=== PATIENT | female | born 1945 ===

== ENCOUNTER 2018-07-13 14:15 | Inpatient (IN) | payer OTHER, SELFPAY ==
[2018-07-13 14:15] VITALS: BP 112/57; PULSE 82; RESP 24; TEMP 36.4; O2SAT 98
--- NOTE | 2018-07-13 14:29 | ED_ITS ---
HPI - Altered Mental Status General Chief Complaint: Altered Mental Status Stated Complaint: possible OD Time Seen by Provider: 07/13/18 14:26 Source: EMS and old records reviewed Mode of arrival: EMS Limitations: altered mental status History of Present Illness HPI narrative: This is a 72-year-old female who comes to the emergency department with altered mental status. EMS was contacted by a friend who was at scene. They did not get any significant past medical history from the friend. Patient was combative and altered. She had is for fentanyl patches on which they removed, 1 of the medics gave Narcan 0.6 mg. Patient continued to be combative. Patient did not improve during transport and received lorazepam followed by ketamine. Related Data Home Medications Medication Instructions Recorded Confirmed amitriptyline 150 mg PO BEDTIME 07/13/18 07/13/18 fentanyl 1 patch TRANSDERMAL Q72H 07/13/18 07/13/18 hydrocodone-acetaminophen [[place]] 1 - 2 tab PO Q4-6H PRN MDD 10 07/13/18 07/13/18 levothyroxine 75 mcg PO DAILY 07/13/18 07/13/18 lisinopril 40 mg PO DAILY 07/13/18 07/13/18 metoprolol tartrate 50 mg PO DAILY 07/13/18 07/13/18 sertraline 50 mg PO DAILY 07/13/18 07/13/18 Allergies Allergy/AdvReac Type Severity Reaction Status Date / Time No Allergy Information Allergy Verified 07/13/18 15:29 Available Review of Systems Review of Systems ROS Unobtainable: Unobtainable due to mental status/LOC Exam Narrative Exam Narrative: GEN: well nourished, female, alert, patient appears to be in moderate distress. Patient does not follow any commands. She has plenty of independent movement and is sort of some worrying all over the bed. She does not appear to be in pain patient will make grunts or loud noises occasionally. She does not answer questions for me while in the room, she has made a couple of very short statements to nursing staff. HEENT: Atraumatic, pupils are equal round reactive to light, extraocular movements are intact, nares are clear, TMs are clear with no fluid, there is no conjunctival pallor. Throat is clear without any exudates, erythema, tonsillar enlargement or uvular deviation, no facial droop. HEART: Regular rate and rhythm without murmur, clicks, rubs. Pulses are equal in upper and lower extremities LUNGS:Lungs clear to auscultation, no wheezes, rales, crackles, chest moves symmetrically, no tachypnea or accessory muscle use. ABD:bowel sounds normal, soft, non-tender, no guarding, rebound, rigidity, no masses noted, no hepatosplenomegaly :No CVA tenderness MSCL: Non-tender, no muscle atrophy, muscles strength 5/5 upper and lower extremities, full range of motion, NEURO:CN 2-12 intact, sensation normal Initial Vital Signs Initial Vital Signs: Vital Signs Temperature 97.6 F 07/13/18 14:15 Pulse Rate 82 07/13/18 14:15 Respiratory Rate 24 07/13/18 14:15 Blood Pressure 112/57 L 07/13/18 14:15 Pulse Oximetry 98 07/13/18 14:15 Course Orders Ordered: ED Orders 07/13/18 14:27 CT head/brain wo con Stat EKG-12 Lead Stat 07/13/18 14:30 XR chest 1V Stat Basic Metabolic Panel Stat Complete Blood Count AUTO DIFF Stat Partial Thromboplastin Time Stat Prolactin Stat Prothrombin Time INR Stat Troponin I Stat Urine Drug Screen, Rapid Stat 07/13/18 14:42 Ethanol (ETOH) Stat 07/13/18 15:30 Urinalysis and Microscopic Stat 07/13/18 18:27 Education, smoking cessation ONGOING 07/13/18 18:30 MRSA PCR Urgent 07/14/18 05:00 Complete Blood Count AUTO DIFF Routine Acetaminophen (Tylenol) 650 mg PO Q6HR PRN PRN Reason: As Needed for Fever/Mild Pain Sodium Chloride (Normal Saline 0.9%) 1,000 mls @ 100 mls/hr IV CONT PAULA Magnesium Hydroxide (Milk Of Magnesia) 30 ml PO DAILY PRN PRN Reason: Constipation Discontinued Medications Sodium Chloride (Normal Saline 0.9%) 1,000 mls @ 150 mls/hr IV CONT PAULA Last Infusion: 07/13/18 16:35 Dose: 150 mls/hr Admin: 07/13/18 15:36 Dose: 150 mls/hr Ketamine HCl (Ketalar) 150 mg IV NOW ONE Stop: 07/13/18 14:46 Last Admin: 07/13/18 14:50 Dose: 150 mg Vital Signs - 8 hr 07/13/18 14:15 07/13/18 15:08 07/13/18 15:52 Temperature 97.6 F Pulse Rate 82 78 89 Respiratory Rate 24 26 H 26 H Blood Pressure 112/57 L Blood Pressure [Right Arm] 158/91 H 145/64 H Pulse Oximetry 98 96 97 07/13/18 16:12 Temperature Pulse Rate 88 Respiratory Rate 26 H Blood Pressure Blood Pressure [Right Arm] 145/86 H Pulse Oximetry 93 MDM - Altered Mental Status Lab Data Attestation: I reviewed the patient's lab results. Result diagrams: 07/13/18 14:30 07/13/18 14:30 Lab Results 07/13/18 07/13/18 07/13/18 Range/Units 14:30 14:30 14:30 WBC 11.1 H (4.5-11.0) X10^3/uL RBC 4.21 (4.0-5.2) X10^6/uL Hgb 13.0 (12.0-16.0) g/dL Hct 37.8 (36-46) % MCV 89.9 (80-100) fL MCH 31.0 (26-34) PG MCHC 34.4 (30-36) % RDW 13.1 (11.6-14.8) % Plt Count 377 (150-400) X10^3/uL Neut % (Auto) 85.7 H (50-75) % Lymph % (Auto) 9.1 L (25-40) % [place] % (Auto) 3.9 (3-14) % Eos % (Auto) 0.8 L (2-4) % Baso % (Auto) 0.5 (0-2) % Neut # (Auto) 9500 H (5920-6650) /uL Lymph # (Auto) 1000 L (6185-1203) /uL [place] # (Auto) 400 (0-900) /uL Eos # (Auto) 100 (0-450) /uL Baso # (Auto) 100 (0-100) /uL PT 10.7 (10.1-12.7) SECONDS INR 0.9 (0.9-1.3) APTT 30 (26.4-36.2) SECONDS Sodium (137-145) mmol/L Potassium (3.4-5.1) mmol/L Chloride (98-107) mmol/L Carbon Dioxide (22-32) mmol/L BUN (7-17) mg/dL Creatinine (0.52-1.04) mg/dL Estimated GFR (>60) mL/min BUN/Creatinine Ratio (6-22) Glucose (80-110) mg/dL Calcium (8.4-10.2) mg/dL Troponin I < 0.012 (0.01-0.034) ng/mL Prolactin 9.5 (3.0-18.6) ng/mL Urine Color Urine Appearance Urine pH (4.5-8.0) Ur Specific [place] (1.000-1.035) Urine Protein (Negative) Urine Glucose (UA) (Negative) g/dL Urine Ketones (NEGATIVE) Urine Occult Blood (Negative) Urine Nitrate (Negative) Urine Bilirubin (NEGATIVE) Urine Urobilinogen (0.2) E.U./dL Ur Leukocyte Esterase (NEGATIVE) Urine RBC (0-5/HPF) Urine WBC (0-5/HPF) Ur Squamous Epith Cells Amorphous Sediment Urine Bacteria (None) Ur Culture Indicated? Urine Opiates Screen (Negative) Ur Oxycodone Screen (Negative) Urine Methadone Screen (Negative) Ur Barbiturates Screen (Negative) U Tricyclic Antidepress (Negative) Ur Phencyclidine Scrn (Negative) Ur Amphetamines Screen (Negative) U Methamphetamines Scrn (Negative) Ur MDMA Scrn (Ecstasy) (Negative) U Benzodiazepines Scrn (Negative) Urine Cocaine Screen (Negative) U Marijuana (THC) Screen (Negative) Ethyl Alcohol mg/dL 07/13/18 07/13/18 07/13/18 Range/Units 14:30 14:30 14:42 WBC (4.5-11.0) X10^3/uL RBC (4.0-5.2) X10^6/uL Hgb (12.0-16.0) g/dL Hct (36-46) % MCV (80-100) fL MCH (26-34) PG MCHC (30-36) % RDW (11.6-14.8) % Plt Count (150-400) X10^3/uL Neut % (Auto) (50-75) % Lymph % (Auto) (25-40) % [place] % (Auto) (3-14) % Eos % (Auto) (2-4) % Baso % (Auto) (0-2) % Neut # (Auto) (4513-3870) /uL Lymph # (Auto) (0019-7135) /uL [place] # (Auto) (0-900) /uL Eos # (Auto) (0-450) /uL Baso # (Auto) (0-100) /uL PT (10.1-12.7) SECONDS INR (0.9-1.3) APTT (26.4-36.2) SECONDS Sodium 134 L (137-145) mmol/L Potassium 4.5 (3.4-5.1) mmol/L Chloride 99 (98-107) mmol/L Carbon Dioxide 27 (22-32) mmol/L BUN 17 (7-17) mg/dL Creatinine 0.80 (0.52-1.04) mg/dL Estimated GFR > 60.0 (>60) mL/min BUN/Creatinine Ratio 21.3 (6-22) Glucose 92 (80-110) mg/dL Calcium 10.2 (8.4-10.2) mg/dL Troponin I (0.01-0.034) ng/mL Prolactin (3.0-18.6) ng/mL Urine Color Urine Appearance Urine pH (4.5-8.0) Ur Specific [place] (1.000-1.035) Urine Protein (Negative) Urine Glucose (UA) (Negative) g/dL Urine Ketones (NEGATIVE) Urine Occult Blood (Negative) Urine Nitrate (Negative) Urine Bilirubin (NEGATIVE) Urine Urobilinogen (0.2) E.U./dL Ur Leukocyte Esterase (NEGATIVE) Urine RBC (0-5/HPF) Urine WBC (0-5/HPF) Ur Squamous Epith Cells Amorphous Sediment Urine Bacteria (None) Ur Culture Indicated? Urine Opiates Screen Positive H (Negative) Ur Oxycodone Screen Negative (Negative) Urine Methadone Screen Negative (Negative) Ur Barbiturates Screen Negative (Negative) U Tricyclic Antidepress Positive H (Negative) Ur Phencyclidine Scrn Negative (Negative) Ur Amphetamines Screen Negative (Negative) U Methamphetamines Scrn Negative (Negative) Ur MDMA Scrn (Ecstasy) Negative (Negative) U Benzodiazepines Scrn Negative (Negative) Urine Cocaine Screen Negative (Negative) U Marijuana (THC) Screen Negative (Negative) Ethyl Alcohol < 10 mg/dL 07/13/18 Range/Units 15:30 WBC (4.5-11.0) X10^3/uL RBC (4.0-5.2) X10^6/uL Hgb (12.0-16.0) g/dL Hct (36-46) % MCV (80-100) fL MCH (26-34) PG MCHC (30-36) % RDW (11.6-14.8) % Plt Count (150-400) X10^3/uL Neut % (Auto) (50-75) % Lymph % (Auto) (25-40) % [place] % (Auto) (3-14) % Eos % (Auto) (2-4) % Baso % (Auto) (0-2) % Neut # (Auto) (1720-9603) /uL Lymph # (Auto) (1973-2596) /uL [place] # (Auto) (0-900) /uL Eos # (Auto) (0-450) /uL Baso # (Auto) (0-100) /uL PT (10.1-12.7) SECONDS INR (0.9-1.3) APTT (26.4-36.2) SECONDS Sodium (137-145) mmol/L Potassium (3.4-5.1) mmol/L Chloride (98-107) mmol/L Carbon Dioxide (22-32) mmol/L BUN (7-17) mg/dL Creatinine (0.52-1.04) mg/dL Estimated GFR (>60) mL/min BUN/Creatinine Ratio (6-22) Glucose (80-110) mg/dL Calcium (8.4-10.2) mg/dL Troponin I (0.01-0.034) ng/mL Prolactin (3.0-18.6) ng/mL Urine Color Yellow Urine Appearance Clear Urine pH 7.5 (4.5-8.0) Ur Specific [place] 1.020 (1.000-1.035) Urine Protein Negative (Negative) Urine Glucose (UA) Negative (Negative) g/dL Urine Ketones Negative (NEGATIVE) Urine Occult Blood Negative (Negative) Urine Nitrate Negative (Negative) Urine Bilirubin Negative (NEGATIVE) Urine Urobilinogen 0.2 (0.2) E.U./dL Ur Leukocyte Esterase Negative (NEGATIVE) Urine RBC None seen (0-5/HPF) Urine WBC None seen (0-5/HPF) Ur Squamous Epith Cells 5-10 /hpf H Amorphous Sediment 2+ Urine Bacteria None seen (None) Ur Culture Indicated? Cult not indicated Urine Opiates Screen (Negative) Ur Oxycodone Screen (Negative) Urine Methadone Screen (Negative) Ur Barbiturates Screen (Negative) U Tricyclic Antidepress (Negative) Ur Phencyclidine Scrn (Negative) Ur Amphetamines Screen (Negative) U Methamphetamines Scrn (Negative) Ur MDMA Scrn (Ecstasy) (Negative) U Benzodiazepines Scrn (Negative) Urine Cocaine Screen (Negative) U Marijuana (THC) Screen (Negative) Ethyl Alcohol mg/dL Point of Care Testing Glucose POC [address] scan - head: Radiologist's impression: [address] [address] [address] Scan Report Signed Patient: Christel Lemus JMR#: [id number] : 6Acct:[id number] Age/Sex: 72 / FDate of Service: 07/13/18 Loc: ED Accession Number: [id number] Procedure: CT head/brain wo con Ordering Provider: Vicky Garcia D.O. PROCEDURE: CT HEAD/BRAIN WO CON INDICATIONS: altered mental status TECHNIQUE: Noncontrast 4.5 mm thick angled axial sections acquired from the foramen magnum to the vertex, with coronal and sagittal reformats. For radiation dose reduction, the following was used: automated exposure control, adjustment of mA and/or kV according to patient size. COMPARISON: None. FINDINGS: Image quality: Excellent. CSF spaces: Basal cisterns are patent. No extra-axial fluid collections. The ventricles are symmetric in size and shape. Brain: No intracranial bleeds or masses. There is cerebral volume loss for age, with resultant ventricular and sulcal prominence. There are periventricular and deep white matter chronic small vessel ischemic changes. There is intracranial internal carotid artery atherosclerosis. Skull and face: Calvarium and visualized facial bones appear intact, without suspicious lesions. Sinuses: Visualized sinuses and mastoids are clear. IMPRESSION: No acute intracranial process Dictated by: Marco Antonio Shaw M.D. on 07/13/2018 at 15:14 Approved by: Marco Antonio Shaw M.D. on 07/13/2018 at 15:17 Chest x-ray: Radiologist's impression: [address] [address] XRay Report Signed Patient: Christel Lemus JMR#: [id number] : 6Acct:[id number] Age/Sex: 72 / FDate of Service: 07/13/18 Loc: ED Accession Number: [id number] Procedure: XR chest 1V Ordering Provider: Vicky Garcia D.O. PROCEDURE: XR CHEST 1V INDICATIONS: altered mental status TECHNIQUE: One view of the chest was acquired. COMPARISON: None. FINDINGS: Surgical changes and devices: None. Lungs and pleura: Bilateral reticular-nodular infiltrates are present. No pleural effusions or pneumothorax. Mediastinum: Mediastinal contours appear normal. Heart size is normal. Bones and chest wall: No suspicious bony lesions. Overlying soft tissues appear unremarkable. IMPRESSION: Bilateral reticular-nodular infiltrates suspicious for pneumonia including atypical infections. Recommend clinical correlation. Dictated by: Ester Briones M.D. on 07/13/2018 at 15:20 Approved by: Ester Briones M.D. on 07/13/2018 at 15:46 ECG Data Attestation: I personally reviewed and interpreted this ECG as follows: Interpretation: Sinus rhythm with sinus arrhythmia and first-degree AV block. A rate of 80, P are interval of 218, QRS of 116 and QTC of 410. Nonspecific ST c hange. Some of this may be motion artifact is patient is moving a lot on exam. [facility] Narrative Medical decision making narrative: Dr. Johnson accepts for admission. Discussed with patient's sister she has a history of alcohol abuse but she states that she suspects she has not been using any or illicit drugs. She does have concern for possibly using her prescription medications inappropriately but she does not have any specific evidence for this. She states that her sister does not have any similar symptoms that in the past that she is aware of. She has not seen her in the last day or 2 but states this is not normal for the patient. Patient's lab work does not show any major changes other than positive for opiates and tricyclics. Patient's chest x-ray shows some by lateral reticular nodule infiltrates suspicious for possible pneumonia. Patient's physical exam is not consistent with an alcohol withdrawal syndrome. And no other clear causes such as bleed on her head CT, alteration in liver enzymes, electrolyte abnormalities their the source of her altered mental status. Discharge Plan Departure Patient Disposition: Admitted As Inpatient Clinical Impression: Altered mental status Discharge Date/Time: 07/13/18 14:30 Interventions: ED Discharge Assessment Last Done: 07/13/18 16:33 Admit Date/Time: 07/13/18 16:14 Admit Provider: Trace Johnson
[2018-07-13 14:44] LABS: Add Manual Diff / Slide Review NO; Basophils Absolute Auto 100 /uL (0-100); Basophils Percent Auto 0.5 % (0-2); Eosinophils Absolute Auto 100 /uL (0-450); Eosinophils Percent Auto 0.8 % (2-4); Hematocrit 37.8 % (36-46); Lymphocytes Absolute Auto 1000 /uL (1100-4500); Lymphocytes Percent Auto 9.1 % (25-40); Mean Corpuscular HGB Conc 34.4 % (30-36); Mean Corpuscular Volume 89.9 fL (80-100); Monocytes Absolute Auto 400 /uL (0-900); Monocytes Percent Auto 3.9 % (3-14); Neutrophils Absolute Auto 9500 /uL (1500-7000); Neutrophils Percent Auto 85.7 % (50-75); Platelet Count 377 X10^3/uL (150-400); Red Blood Cell Count 4.21 X10^6/uL (4.0-5.2); Red Cell Distribution Width 13.1 % (11.6-14.8); White Blood Cell Count 11.1 X10^3/uL (4.5-11.0)
[2018-07-13] MEDS: KETAMINE 500 MG/5 ML INJ 150 MG IV (14:50)
[2018-07-13 14:51] LABS: INR 0.9 (0.9-1.3); Prothrombin Time 10.7 SECONDS (10.1-12.7)
[2018-07-13 14:54] LABS: PTT Partial Thromboplastin Tim 30 SECONDS (26.4-36.2)
[2018-07-13 14:56] LABS: BUN Creatinine Ratio 21.3 (6-22); Blood Urea Nitrogen 17 mg/dL (7-17); Calcium 10.2 mg/dL (8.4-10.2); Carbon Dioxide 27 mmol/L (22-32); Chloride 99 mmol/L (98-107); Estimated Glomerular Filt Rate > 60.0 mL/min (>60); Glucose 92 mg/dL (80-110); HEMOLYSIS 20 (0-50); Potassium 4.5 mmol/L (3.4-5.1); Sodium 134 mmol/L (137-145)
[2018-07-13 15:00] LABS: Ethanol (ETOH) < 10 mg/dL
[2018-07-13 15:08] VITALS: BP 158/91; PULSE 78; RESP 26; O2SAT 96
[2018-07-13 15:10] LABS: Troponin I < 0.012 ng/mL (0.01-0.034)
[2018-07-13 15:13] LABS: Prolactin 9.5 ng/mL (3.0-18.6)
[2018-07-13] MEDS: SODIUM CHLORIDE 0.9% 1,000 ML 150 ML IV (15:36)
[2018-07-13 15:40] LABS: Bacteria Urine None Seen; RBC Urine None Seen (0-5/HPF); WBC Urine None Seen (0-5/HPF)
[2018-07-13 15:42] LABS: Appearance Urine UA CLEAR; Bilirubin Urine UA NEGATIVE (NEGATIVE); Color Urine UA YELLOW; Glucose Urine UA NEGATIVE (Negative); Ketones Urine UA NEGATIVE (NEGATIVE); Leukocyte Esterase Urine UA NEGATIVE (NEGATIVE); Nitrite Urine UA NEGATIVE (Negative); Occult Blood Urine UA NEGATIVE (Negative); Protein Urine UA NEGATIVE (Negative); Urobilinogen Urine UA 0.2 E.U./dL (0.2); pH Urine UA 7.5 (4.5-8.0)
--- NOTE | 2018-07-13 15:46 | PC.NURSE ---
Patient continues grunting, flexing, grabbing at the air, hallucinating, making noises but no intelligble words. A&Ox0.
[2018-07-13 15:49] LABS: Urine Amphetamines Negative (Negative); Urine Barbiturates Negative (Negative); Urine Benzodiazepines Negative (Negative); Urine Cocaine Negative (Negative); Urine MDMA Negative (Negative); Urine Methadone Negative (Negative); Urine Methamphetamines Negative (Negative); Urine Morphine/Opi cutoff 2000 Positive (Negative); Urine Phencyclidine Negative (Negative); Urine Tetrahydrocannabinol Negative (Negative); Urine Tricyclic Antidepressant Positive (Negative)
[2018-07-13 15:50] LABS: Urine Oxycodone Negative (Negative)
[2018-07-13 15:52] VITALS: BP 145/64; PULSE 89; RESP 26; O2SAT 97
[2018-07-13 15:52] LABS: Amorphous Sediment Urine 2+; Culture Indicated Urine Cult Not Indicated; Squamous Epithelial Cell Urine 5-10 /HPF
--- NOTE | 2018-07-13 15:53 | PC.NURSE ---
Patient began laughing while I scanned her for medications. I asked her Is that funny? And she said yeah. Continues thrashing/flailing, limbs, intermittently flexing, grunting and grabbing aimlessly at the air. NOt answering questions except for the one stated above.
--- NOTE | 2018-07-13 16:11 | PC.NURSE ---
Patient continues thrashing and moaning loudly and hallucinating, however she is now occasionally answering questions. Answers to her name and occasionally makes eye contact. A&Ox1.
[2018-07-13 16:12] VITALS: BP 145/86; PULSE 88; RESP 26; O2SAT 93
--- NOTE | 2018-07-13 16:13 | PC.NURSE ---
This EDRN has remained at bedside since she arrived and will continue to do so until she is transferred due to possibility of her falling out of bad or hurting herself.
[2018-07-13 17:28] VITALS: BMI 26.6
--- NOTE | 2018-07-13 18:06 | PC.NURSE ---
1630- Patient brought over to room 102 via stretcher from Emergency. Patient is agitated and yelling. Patient assisted to the bed using a slide board and assist of four staff. Patient is not able to follow instructions. Patient is combative and impulsive. Will monitor.
[2018-07-13 18:27] VITALS: BP 128/56; PULSE 74; RESP 28; TEMP 37; O2SAT 97
[2018-07-13] MEDS: SODIUM CHLORIDE 0.9% 1,000 ML 100 ML IV (18:30)
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
[2018-07-13 20:23] VITALS: BMI 23.1
[2018-07-13 20:24] VITALS: BMI 23.1
[2018-07-13 20:59] VITALS: BP 167/83; PULSE 68; RESP 20; TEMP 37.1; O2SAT 97
[2018-07-14] VITALS (10 sets, daily range): BP systolic 130–184; BP diastolic 65–81; PULSE 60–73; RESP 16–20; TEMP 36.1–37.2; O2SAT 95–99
[2018-07-14 04:58] LABS: Add Manual Diff / Slide Review NO; Basophils Absolute Auto 100 /uL (0-100); Basophils Percent Auto 0.7 % (0-2); Eosinophils Absolute Auto 0 /uL (0-450); Eosinophils Percent Auto 0.5 % (2-4); Hematocrit 33.2 % (36-46); Hemoglobin 11.3 g/dL (12.0-16.0); Lymphocytes Absolute Auto 1500 /uL (1100-4500); Lymphocytes Percent Auto 14.5 % (25-40); Mean Corpuscular HGB Conc 34.2 % (30-36); Mean Corpuscular Hemoglobin 30.5 PG (26-34); Mean Corpuscular Volume 89.4 fL (80-100); Monocytes Absolute Auto 800 /uL (0-900); Monocytes Percent Auto 7.2 % (3-14); Neutrophils Absolute Auto 8000 /uL (1500-7000); Neutrophils Percent Auto 77.1 % (50-75); Platelet Count 306 X10^3/uL (150-400); Red Blood Cell Count 3.71 X10^6/uL (4.0-5.2); Red Cell Distribution Width 13.2 % (11.6-14.8); White Blood Cell Count 10.4 X10^3/uL (4.5-11.0)
--- NOTE | 2018-07-14 07:44 | P.PN_ITS ---
Subjective Interval history: She presented to the ED confused restless and combative. She is on fentanyl patch 1 to 3 days but was found to have 4 of her fentanyl patches which medics removed. She is supposed to be on a single 25 mcg fentanyl patch. She received Narcan 0.6 mg and subsequently lorazepam followed by ketamine. She got 2nd dose of ketamine in the ED. Today once seen she was awake alert oriented x3. Her main complaint was that she was beginning to feel as though she was having opioid withdrawal because she did not have her fentanyl patch Exam Vital Signs (past 8 hours): - 07/14/18 00:02 07/14/18 01:28 07/14/18 05:00 Temperature 98.0 F 97.6 F Pulse Rate 65 67 Respiratory Rate 16 16 Blood Pressure 168/68 H 151/74 H Pulse Oximetry 95 98 98 07/14/18 07:29 Temperature 99.0 F Pulse Rate 67 Respiratory Rate 16 Blood Pressure 166/74 H Pulse Oximetry 99 Oxygen Delivery Method Room Air Oxygen Flow Rate 0 Narrative Exam Narrative: GENERAL: NAD laying in bed HEAD: Atraumatic. Normocephalic. EYES: Pupils dilated 5 mm but equal, round and reactive. Extraocular motions intact. No scleral icterus. No injection or drainage. OROPHARYNX: Noted dry flecks of blood on lips NECK: Trachea midline. No JVD or lymphadenopathy. CARDIOVASCULAR: Regular rate and rhythm without murmurs, gallops, or rubs. RESPIRATORY: Clear to auscultation bilaterally. GASTROINTESTINAL: Abdomen nondistended, soft, non-tender. No hepato- splenomegaly, or palpable masses. EXTREMITIES: No edema. NEUROLOGICAL: Grossly nonfocal PSYCHOLOGICAL: Awake alert oriented x3. Mood was normal SKIN: warm, dry, no rash Objective Labs Result Diagrams: 07/14/18 04:40 07/13/18 14:30 Labs: Laboratory Results - last 24 hr 07/13/18 07/13/18 07/13/18 14:30 14:30 14:30 WBC 11.1 H RBC 4.21 Hgb 13.0 Hct 37.8 MCV 89.9 MCH 31.0 MCHC 34.4 RDW 13.1 Plt Count 377 Neut % (Auto) 85.7 H Lymph % (Auto) 9.1 L [place] % (Auto) 3.9 Eos % (Auto) 0.8 L Baso % (Auto) 0.5 Neut # (Auto) 9500 H Lymph # (Auto) 1000 L [place] # (Auto) 400 Eos # (Auto) 100 Baso # (Auto) 100 PT 10.7 INR 0.9 APTT 30 Sodium Potassium Chloride Carbon Dioxide BUN Creatinine Estimated GFR BUN/Creatinine Ratio Glucose Calcium Troponin I < 0.012 Prolactin 9.5 Urine Color Urine Appearance Urine pH Ur Specific [place] Urine Protein Urine Glucose (UA) Urine Ketones Urine Occult Blood Urine Nitrate Urine Bilirubin Urine Urobilinogen Ur Leukocyte Esterase Urine RBC Urine WBC Ur Squamous Epith Cells Amorphous Sediment Urine Bacteria Ur Culture Indicated? Nasal Screen MRSA (PCR) Urine Opiates Screen Ur Oxycodone Screen Urine Methadone Screen Ur Barbiturates Screen U Tricyclic Antidepress Ur Phencyclidine Scrn Ur Amphetamines Screen U Methamphetamines Scrn Ur MDMA Scrn (Ecstasy) U Benzodiazepines Scrn Urine Cocaine Screen U Marijuana (THC) Screen Ethyl Alcohol 07/13/18 07/13/18 07/13/18 14:30 14:30 14:42 WBC RBC Hgb Hct MCV MCH MCHC RDW Plt Count Neut % (Auto) Lymph % (Auto) [place] % (Auto) Eos % (Auto) Baso % (Auto) Neut # (Auto) Lymph # (Auto) [place] # (Auto) Eos # (Auto) Baso # (Auto) PT INR APTT Sodium 134 L Potassium 4.5 Chloride 99 Carbon Dioxide 27 BUN 17 Creatinine 0.80 Estimated GFR > 60.0 BUN/Creatinine Ratio 21.3 Glucose 92 Calcium 10.2 Troponin I Prolactin Urine Color Urine Appearance Urine pH Ur Specific [place] Urine Protein Urine Glucose (UA) Urine Ketones Urine Occult Blood Urine Nitrate Urine Bilirubin Urine Urobilinogen Ur Leukocyte Esterase Urine RBC Urine WBC Ur Squamous Epith Cells Amorphous Sediment Urine Bacteria Ur Culture Indicated? Nasal Screen MRSA (PCR) Urine Opiates Screen Positive H Ur Oxycodone Screen Negative Urine Methadone Screen Negative Ur Barbiturates Screen Negative U Tricyclic Antidepress Positive H Ur Phencyclidine Scrn Negative Ur Amphetamines Screen Negative U Methamphetamines Scrn Negative Ur MDMA Scrn (Ecstasy) Negative U Benzodiazepines Scrn Negative Urine Cocaine Screen Negative U Marijuana (THC) Screen Negative Ethyl Alcohol < 10 07/13/18 07/13/18 07/14/18 15:30 18:30 04:40 WBC 10.4 RBC 3.71 L Hgb 11.3 L Hct 33.2 L MCV 89.4 MCH 30.5 MCHC 34.2 RDW 13.2 Plt Count 306 Neut % (Auto) 77.1 H Lymph % (Auto) 14.5 L [place] % (Auto) 7.2 Eos % (Auto) 0.5 L Baso % (Auto) 0.7 Neut # (Auto) 8000 H Lymph # (Auto) 1500 [place] # (Auto) 800 Eos # (Auto) 0 Baso # (Auto) 100 PT INR APTT Sodium Potassium Chloride Carbon Dioxide BUN Creatinine Estimated GFR BUN/Creatinine Ratio Glucose Calcium Troponin I Prolactin Urine Color Yellow Urine Appearance Clear Urine pH 7.5 Ur Specific [place] 1.020 Urine Protein Negative Urine Glucose (UA) Negative Urine Ketones Negative Urine Occult Blood Negative Urine Nitrate Negative Urine Bilirubin Negative Urine Urobilinogen 0.2 Ur Leukocyte Esterase Negative Urine RBC None seen Urine WBC None seen Ur Squamous Epith Cells 5-10 /hpf H Amorphous Sediment 2+ Urine Bacteria None seen Ur Culture Indicated? Cult not indicated Nasal Screen MRSA (PCR) Negative for mrsa Urine Opiates Screen Ur Oxycodone Screen Urine Methadone Screen Ur Barbiturates Screen U Tricyclic Antidepress Ur Phencyclidine Scrn Ur Amphetamines Screen U Methamphetamines Scrn Ur MDMA Scrn (Ecstasy) U Benzodiazepines Scrn Urine Cocaine Screen U Marijuana (THC) Screen Ethyl Alcohol Assessment & Plan Assessment Narrative: This is a 72-year-old female presenting with severe delirium probably secondary to unintentional fentanyl overdose. 1. Encephalopathy due to drug toxicity - this is cleared with the patient's fentanyl patch is removed -will resume her fentanyl 25 mcg q.3 days -maintain hydration with normal saline 100 cc/hour -diet as tolerated -maintain in ICU 2. Opioid dependency with acute delirium -as above 3. Hypertension -continue home routine lisinopril 40 mg q.d., metoprolol tartrate 50 mg q.d. 4. Depression -current status undetermined, reassess when patient's mental status improves -resume sertraline and amitriptyline 5. Hypothyroidism -continue levothyroxine 75 mcg q.d. 6. Mild leukocytosis - normalized this morning. No obvious source of infection chest x-ray does reveal a reticular nodular infiltrate but doubt infectious process and UA was unremarkable -no further workup Quality VTE Deep Vein Thrombosis/Pulmonary Embolism Present on Admission: No
[2018-07-14] MEDS: SODIUM CHLORIDE 0.9% 1,000 ML 100 ML IV (07:58)
--- NOTE | 2018-07-14 08:58 | PC.NURSE ---
Addendum entered by Jewell Billingsley R.N. 07/14/18 14:45: Discussed with Pt carlitos/floresita bonilla, and Pt is agreeable with POC. Order obtained. Pt feels opiate with drawl s/sx stable at present. Original Note: Addendum entered by Jewell Billingsley R.N. 07/14/18 11:51: Pt up ambulating in halls with PT. Gait steady. Updated Dr Dominique on elevated BP and home medication, as not ordered for inpatient use. Pt reporting leg spasms/RLS symptoms, advising staff this is how her opiate withdrawl begins and gets much worse. MD aware. Original Note: Am shift Pt is a/o x2, feels mentation has improved significantly, however, no recall of events leading up to admission I know I was hallucinating last night, I know Efrem Healy wasn't here over my shoulder all night Pt has times of inappropriate laughter during assessment, appears clear at times, but waxes and wanes. Dr Lnicoln into see Pt, PT ordered and will ambulate as tolerated. Up to BSC. Ilsa patent. Bed alarm active.
[2018-07-14] MEDS: HYDROMORPHONE 0.5 MG INJ 0.2 MG IV ×2 (09:36→13:21)
--- NOTE | 2018-07-14 10:40 | PT.IIE ---
Medical History (Last Updated 07/13/18 @ 18:32 by Trace Johnson MD) Chronic back pain (Acute) Depression (Acute) Hypertension (Acute) Hypothyroidism (Acute) Physical Therapy Inpatient Evaluation/Re-Eval M1 PT/OT-IP Prior Functional Status Start: 07/14/18 12:05 Freq: NEEDED Status: Active Protocol: Document 07/14/18 10:40 [facility] (Rec: 07/14/18 12:17 [facility] [id number]) Medical Review Prior Functional Status Medical History Reviewed Yes Mobility and Gait indep. community ambulator without device; able to walk 4 -5 blocks in town on [address] to/from store. Activities of Daily Living and IADL's indep. I/ADLs, including driving Social History Household Members none Living Arrangements Apartment/Condo Number of Floors (Floors) One Floor Number of Stairs To Enter/Railing? 12 steps to get to 2nd level where her apartment is, B rails Home Environment Standard Height Toilet Tub/Shower Additional Social History Comment Pt found confused by a friend, possibly toxicity/overdose due to fentanyl patches. M2 PT-IP Current Condition Start: 07/14/18 12:05 Freq: NEEDED Status: Active Protocol: Document 07/14/18 10:40 [facility] (Rec: 07/14/18 12:17 [facility] [id number]) Physical Therapy Current Condition Current Condition Evaluation Date 07/14/18 Treatment Diagnosis possible OD, impaired gait M3 PT-IP Subjective Start: 07/14/18 12:05 Freq: NEEDED Status: Active Protocol: Document 07/14/18 10:40 [facility] (Rec: 07/14/18 12:17 [facility] [id number]) Subjective Physical Therapy Visit Type Type Initial Evaluation Visit Start Time 10:40 Visit Stop Time 11:03 Total Visit Minutes 23 Number of BICYCLE REPAIRER Visits 0 Physical Therapy Visit Comments Patient Comments pt states she feels better this morning, just really tired. Patient Goals to go home from hospital Therapy Pain Assessment Pain Present Pain Present Denied Pain M4 PT-IP Mobility and Gait Start: 07/14/18 12:05 Freq: NEEDED Status: Active Protocol: Document 07/14/18 10:40 [facility] (Rec: 07/14/18 12:17 [facility] [id number]) PT-Bed Mobility Assessment Supine to Sit Supine to Sit Independent Sit to Supine Sit to Supine Independent Scooting Scooting to Edge of Bed Independent PT-Transfer Assessment Sit to and From Stand Sit to and from Stand Standby Assistance Equipment Transfer Assistive Device Gait Belt Transfers Transfer Destination Bed Transfer Technique Stand Step Pivot Transfer Ability Level of Assist Standby Assistance Gait Assessment Gait Gait Assistance Required: Standby Assistance Distance (Feet) 100 Assistive Devices Assistive Device Gait Belt Gait Deviations General Gait Pattern Ataxic Decreased Stride Length Decreased Feet Clearance Factors Limiting Gait Function Factors Limiting Gait Function Decreased Activity Tolerance Poor Balance Comments Gait Comments pt initially with slower gait but able to increase speed after initial 25 ft; mild sway laterally but no LOB Stair Climbing Assessment Evaluation Level of Assist On Stairs Contact Guard Assistance Devices Stair Climbing Assistive Devices Left Railing Technique/Endurance Stair Climbing Direction Ascend and Descend Stair Climbing Technique Step to Step Number of Steps Climbed 3 Query Text: Stair Climbing Set # Repetitions (reps) 1 Comments Stair Climbing Comments 8 stool with rail used for stair training. PT-Balance Assessment Sitting Balance and Reactions Static Sitting Balance Ability Good Dynamic Sitting Balance Ability Good Standing Balance and Reactions Static Standing Balance Ability Good Dynamic Standing Balance Ability Fair Device Used none Balance Tests Single Limb Standing unable Romberg 4 sec Tandem Standing 2 sec each M5 PT-IP Objective Assessments Start: 07/14/18 12:05 Freq: NEEDED Status: Active Protocol: Document 07/14/18 10:40 [facility] (Rec: 07/14/18 12:17 [facility] [id number]) Orientation Orientation/Cognition Level of Alertness Alert Gross Range of Motion Lower Extremity ROM Assessment Within Functional Limits Strength Lower Extremity Strength Assessment Within Functional Limits Coordination Assessment Gross Coordination Gross Coordination WNL M6 PT-IP Treatment Start: 07/14/18 12:05 Freq: NEEDED Status: Active Protocol: Document 07/14/18 10:40 [facility] (Rec: 07/14/18 12:17 [facility] [id number]) Physical Therapy Treatment Education Education Provided Safety M7 PT-IP Assessment and Plan Start: 07/14/18 12:05 Freq: NEEDED Status: Active Protocol: Document 07/14/18 10:40 [facility] (Rec: 07/14/18 12:17 [facility] [id number]) PT Summary Assessment and Plan Potential Rehabilitation Potential Good Status of Condition at Evaluation Stable Summary Impairments Balance Cognition Gait Activity Tolerance Assessment Summary Pt with mildly ataxic gait, but no loss of balance during ambulation. She has difficulty with standing with feet together and loses her balance with her eyes closed, as well as loss of balance with semi- tandem standing. Overall, pt appears to be below her usual functional balance and gait, but is able to ambulate without an assistive device and managed 3 steps with CGA. Expect pt to be able to return home when medically stable, but would continue to benefit from physical therapy during this episode of care to progress her static and dynamic standing balance, gait , and further stair training. Goals Transfer Goal Independent Gait Goal Independent Gait Distance 300 Other Goals up/down 12 steps with B rails and SBA. Days to Meet Goals 3 Frequency of Treatment Frequency Of Treatment Once a Day Treatment Plan Physical Therapy Treatment Plan Gait Training Therapeutic Exercise Balance Retraining Discharge Planning Neuromuscular Re-ed Other Recommendations and Next Treatment standing balance, gait, stairs Focus Recommendations To Nursing Amount of Assist Needed 1 Person Assist Discharge Recommendations PT Discharge Recommendations Home
--- NOTE | 2018-07-14 11:45 | CM.DANOTE ---
Patient is a 72 year old female who was admitted on 07/13/18 for accidental overdose. Pt has [facility] for insurance and her PCP is not listed. EMR was reviewed. Per MD, pt with accidental overdose on her fentanyl patches and not medically stable for d/c yet today but possible tomorrow if stable. Per PT, recommending safe d/c home when medically stable. SW met bedside with pt and explained role and updated white board and pt confirms that she lives alone on [address] in an apartment building with supportive friends in the same apartment complex as well as at least one supportive sister living on [address] as well. Pt is typically Independent with ADL's at baseline and denies any current supportive services in place or HH. Pt does not anticipate any SW needs at d/c and preference is home when medically stable. Pt anticipates that her sister can provide transport at d/c but pt would be agreeable to free [employer] from hospital to [facility] terminal with family/friends to pick her up on [address] side. Plan: SW to follow for likely pt d/c home when medically stable. SW to follow for any further identified discharge planning needs. JOSEPH Ramirez Discharge Planning/Care Management CM Discharge Assessment Start: 07/14/18 11:42 Freq: Status: Active Protocol: Document 07/14/18 11:42 BF (Rec: 07/14/18 11:45 [facility] [id number]) Discharge Planning Assessment Assigned Retarder Operator JOSEPH Aguero Advance Directives? No History Provided By Patient Medical Record Has Patient been admitted in last 30 No days? Prior Living Arrangements Apartment/Condo Household Members none Type of transporation used prior to Drives own vehicle admit Comment Lives alone in an apartment on [address] with local family and friend support. Independent at baseline. Independent with ADL's Yes Is patient alert and oriented? Yes Caregiver for Another No Comment Likely return home with no needs Barriers to Discharge No Discharge Plan Home Transportation Arrangement If sister cannot provide transport, pt agreeable [place] [employer] [place] to [place] her up on [address] side. Referrals Initiated None needed Whiteboard Updated in Patient Room with Yes name and ext. # of Retarder Operator Review Status In Process Please Provide Date Initial DC 07/14/18 Assessment Was Performed Next Review Type Continued Stay Review
[2018-07-14] MEDS: fentaNYL 25 MCG/PATCH TOP (13:11)
--- NOTE | 2018-07-14 15:37 | PC.NURSE ---
1530- Rosenbaum catheter removed per order. Patient tolerated well.
[2018-07-14] MEDS: AMITRIPTYLINE 75 MG TABLET 150 MG PO (21:39)
[2018-07-15 05:29] VITALS: BP 159/81; PULSE 84; RESP 16; TEMP 36.7; O2SAT 99
[2018-07-15] MEDS: LEVOTHYROXINE 75 MCG TABLET PO (06:44)
[2018-07-15 07:37] VITALS: BP 168/71; PULSE 69; RESP 16; TEMP 36.6; O2SAT 98
--- NOTE | 2018-07-15 07:53 | PM.DS.1 ---
History of Present Illness Chief complaint: possible OD Narrative: Patient is a 72-year-old female who was found confused at home. She is quite disoriented and unable to provide history. Apparently a friend called paramedics to patient's home on [address]. She was found to be very confused, restless and combative. She had on 4 of her fentanyl patches which medics removed. She is supposed to be on a single 25 mcg fentanyl patch. She received Narcan 0.6 mg and subsequently lorazepam followed by ketamine. She got 2nd dose of ketamine in the ED. Further history unobtainable. She is afebrile, not tachycardic, mildly hypertensive. Discharge Providers Date of admission: 07/13/18 16:14 Consults: 07/14/18 08:06 Consult to Physical Therapy Evaluate & Treat Comment: Physician Instructions: Evaluate and Treat Discharge provider: Eleazar Dominique MD Discharge Date: 07/15/18 Summary Discharge Diagnosis: ALTERED MENTAL STATUS PRESUMED SECONDARY TO FENTANYL CHRONIC OPIOID USE WITH FENTANYL CHRONIC BACK PAIN DEPRESSION HYPERTENSION HYPOTHYROIDISM Hospital Course: She is admitted to the ICU for close monitoring and observation. She was placed on IV fluids. When seen on the day after admission she was completely cognitively intact. Later during the course of the day she states that she was feeling as though she was withdrawing from her fentanyl patch. She was initially given Dilaudid 0.2 mg IV x1 approximately 4 hr later she had the same feelings and was given another IV bolus of Dilaudid 0.2 mg x1 and placed on fentanyl patch 25 mcg. After administration of those meds she had no further complaints of feeling as though she was withdrawing. When seen on the day of discharge she was completely cognitively intact she was oriented x4. She was felt stable and ready for discharge Status at Discharge Cognitive/behavioral status at discharge: Completely cognitively intact without agitation anxiety anxiousness Functional status at discharge: independent ambulation Overall status at discharge: patient is back to baseline Time Spent with Patient Greater than 30 minutes Exam Vital Signs (past 8 hours): - 07/14/18 23:54 07/15/18 05:29 07/15/18 07:37 Temperature 98.1 F 97.8 F Pulse Rate 84 69 Respiratory Rate 16 16 Blood Pressure 159/81 H 168/71 H Pulse Oximetry 99 99 98 Oxygen Delivery Method Room Air Oxygen Flow Rate 0 Narrative Exam Narrative: General: NAD HEENT: Completely normal Neck: No thyromegaly bruits or jugular venous distension Respiratory: Clear to auscultation percussion Cardiovascular: Regular rhythm S1-S2 was normal there were no lifts heaves rubs murmurs gallops present GI: Benign bowel sounds active no guarding rigidity or tenderness to palpation Genitourinary: No suprapubic or flank tenderness Musculoskeletal: No clubbing edema or cyanosis full range of motion Skin: No acute skin rashes Neurologic: Grossly physiologic Psychiatric: Awake alert oriented x4. Mood and affect were normal Objective Labs Result Diagrams: 07/14/18 04:40 07/13/18 14:30 Discharge Plan Discharge Plan Patient Disposition: Home Discharge Med Rec/Prescriptions Prescriptions: Continued amitriptyline 150 mg Tablet 150 mg PO BEDTIME RF: 0 levothyroxine 75 mcg Tablet 75 mcg PO DAILY RF: 0 hydrocodone-acetaminophen [[place]] 7.5-325 mg Tablet 1 - 2 tab PO Q4-6H MDD 10 PRN (Reason: pain) RF: 0 metoprolol tartrate 50 mg Tablet 50 mg PO DAILY RF: 0 fentanyl 25 mcg/hr Patch 72 Hour 1 patch TRANSDERMAL Q72H RF: 0 lisinopril 40 mg Tablet 40 mg PO DAILY RF: 0 sertraline 50 mg Tablet 50 mg PO DAILY RF: 0 Provider Discharge Instructions Diet: Regular Activity: UP AD LOGAN Skin/Wound/Dressing Care Report to your healthcare provider any signs of infection, such as:: chills, fever and increased pain Discharge Data Attending Provider: Trace Johnson Admit Date/Time: 07/13/18 16:14 Quality VTE Deep Vein Thrombosis/Pulmonary Embolism Present on Admission: No
[2018-07-15 08:00] VITALS: O2SAT 98
[2018-07-15] MEDS: ENOXAPARIN 40 MG/0.4 ML SYRINGE SUBCUT (09:59)
[2018-07-15 10:00] VITALS: BP 168/71
[2018-07-15] MEDS: METOPROLOL IR 50 MG TABLET PO (10:00)
[2018-07-15] MEDS: LISINOPRIL 20 MG TABLET 40 MG PO (10:00)
[2018-07-15] MEDS: SERTRALINE 50 MG TABLET PO (10:00)
--- NOTE | 2018-07-15 11:31 | CM.DPC ---
Discharge Planning/Care Management Per MD: patient to discharge home today. Met with patient: patient reviewed and signed IMM. Patient agreeable to discharge. Patient is working with her sister, niece and grandniece to coordinate transportation. Patient is certain one of them will be able to excelsior picker patient. Informed patient she is eligible for [employer] taxi to [employer] but patient does not have shoes or a coat and wants family to bring her own items. Plan: Patient to discharge home today via family members. No needs at this time. Document 07/15/18 11:30 (Rec: 07/15/18 11:31 [id number]) Discharge Planning Assessment Assigned Picker And Packer JOSEPH White Advance Directives? No History Provided By Patient Medical Record Has Patient been admitted in last 30 No days? Prior Living Arrangements Apartment/Condo Household Members none Type of transporation used prior to Drives own vehicle admit Comment Lives alone in an apartment on [address] with local family and friend support. Independent at baseline. Independent with ADL's Yes Is patient alert and oriented? Yes Caregiver for Another No Barriers to Discharge No Discharge Plan Home Transportation Arrangement Patient is working with her sister or niece to provide transportation home. Patient not wishing to take [employer] as she does not have shoes or coat. Sister or niece will bring needed items. Referrals Initiated None needed Whiteboard Updated in Patient Room with Yes name and ext. # of Picker And Packer Please Provide Date Initial DC 07/14/18 Assessment Was Performed Next Review Type Continued Stay Review
[2018-07-15 12:00] VITALS: PULSE 64; RESP 16; TEMP 37.2; O2SAT 97
--- NOTE | 2018-07-15 13:31 | PC.NURSE ---
Dayshift Note: Pt checked on and assessed. Pt was received sitting up in bed. Pt alert and oriented x3. Pt with some confusion about circumstances surrounding her admission to the hospital. VSS, hypertension to 160s systolic. Given am metoprolol and lisinopril. Pt otherwise with unventful shift. Pt given discharge instructions about medications, instructed to take all medications as directed. This RN gave pt suggestions for keeping track of last fentanyl patch, including writing date of admin on patch. Pt with no new orders for mobility or diet. Discussed safety issues with avoiding falls at home, staying hydrated in this weather, and to call 911 with any signs of stroke (discussed stroke symptoms with pt). Pt discharged via wheelchair to private vehicle at ER entrance, accompanied by pt's sister and great-neice.
== END 2018-07-15 12:30 | disposition home or self-care (01) | DRG 917 ==
LOC: ED 15:56 → ICU 16:40
PROVIDERS: Admitting Provider Internal Medicine; Emergency Provider Emergency Medicine; Visit Provider Internal Medicine
DX: T40.4X1A Poisoning by other synthetic narcotics, accidental (unintentional), initial encounter (principal); G92 Toxic encephalopathy; F11.20 Opioid dependence, uncomplicated; I10 Essential (primary) hypertension; F32.9 Major depressive disorder, single episode, unspecified; E03.9 Hypothyroidism, unspecified; G89.29 Other chronic pain
CPT/HCPCS: 36415; 36591; 51701; 70450; 71045; 80048; 80305; 80320; 81001; 84146; 84484; 85025; 85610; 85730; 87797; 93005; 96374; 97161; 99281; 99285; 99291; 99292; G0378; J1170; J1650

== ENCOUNTER → 2022-05-02 13:21 | Outpatient (CLI) | payer MEDICARE, MEDICAID, SELFPAY ==
[2022-05-02 19:28] LABS: Add Manual Diff / Slide Review NO; Basophils Absolute Auto 100 /uL (0-100); Basophils Percent Auto 0.6 % (0-2); Eosinophils Absolute Auto 100 /uL (0-450); Eosinophils Percent Auto 0.7 % (2-4); Hematocrit 36.5 % (36-46); Hemoglobin 12.3 g/dL (12.0-16.0); Lymphocytes Absolute Auto 2200 /uL (1100-4500); Lymphocytes Percent Auto 23.7 % (25-40); Mean Corpuscular HGB Conc 33.8 % (30-36); Mean Corpuscular Hemoglobin 29.8 PG (26-34); Monocytes Absolute Auto 700 /uL (0-900); Monocytes Percent Auto 7.1 % (3-14); Neutrophils Absolute Auto 6300 /uL (1500-7000); Neutrophils Percent Auto 67.9 % (50-75); Platelet Count 361 X10^3/uL (150-400); Red Blood Cell Count 4.14 X10^6/uL (4.0-5.2); Red Cell Distribution Width 13.5 % (11.6-14.8); White Blood Cell Count 9.3 X10^3/uL (4.5-11.0)
[2022-05-02 19:49] LABS: Free T4, Direct Thyroxine 1.61 ng/dL (0.78-2.19)
[2022-05-02 19:54] LABS: Alanine Aminotransferase 15 IU/L (<35); Albumin 4.1 g/dL (3.5-5.0); Albumin Globulin Ratio 1.6 (1.0-2.8); Alkaline Phosphatase 76 U/L (38-126); Aspartate Aminotransferase 19 IU/L (14-36); BUN Creatinine Ratio 13.6 (6-22); Bilirubin Total 0.4 mg/dL (0.2-1.3); Blood Urea Nitrogen 12 mg/dL (7-17); Calcium 9.7 mg/dL (8.4-10.2); Carbon Dioxide 25 mmol/L (22-32); Chloride 89 mmol/L (98-107); Estimated Glomerular Filt Rate > 60 mL/min (>60); Globulin 2.5 g/dL (1.7-4.1); Glucose 85 mg/dL (80-110); HEMOLYSIS < 15 (0-50); Potassium 3.9 mmol/L (3.4-5.1); Sodium 125 mmol/L (137-145); Total Protein 6.6 g/dL (6.3-8.2)
[2022-05-02 20:03] LABS: Thyroid Stimulating Hormone 3.86 uIU/mL (0.47-4.68)
[2022-05-05 23:25] LABS: Parathyroid Hormone, Intact 53 pg/mL (15-65)
== END ==
PROVIDERS: PCP Family Medicine; Visit Provider Family Medicine
DX: R41.82 Altered mental status, unspecified (principal); E21.3 Hyperparathyroidism, unspecified; D64.9 Anemia, unspecified; E78.2 Mixed hyperlipidemia; G89.29 Other chronic pain; M54.50 Low back pain, unspecified
CPT/HCPCS: 80053; 82310; 83970; 84439; 84443; 85025

== ENCOUNTER → 2022-06-08 13:04 | Outpatient (CLI) | payer MEDICARE, SELFPAY ==
[2022-06-08 19:58] LABS: Add Manual Diff / Slide Review NO; Basophils Absolute Auto 100 /uL (0-100); Basophils Percent Auto 0.6 % (0-2); Eosinophils Absolute Auto 100 /uL (0-450); Eosinophils Percent Auto 1.1 % (2-4); Hematocrit 35.2 % (36-46); Hemoglobin 11.8 g/dL (12.0-16.0); Lymphocytes Absolute Auto 1900 /uL (1100-4500); Lymphocytes Percent Auto 22.8 % (25-40); Mean Corpuscular HGB Conc 33.4 % (30-36); Mean Corpuscular Hemoglobin 30.1 PG (26-34); Mean Corpuscular Volume 90.2 fL (80-100); Monocytes Absolute Auto 500 /uL (0-900); Monocytes Percent Auto 5.9 % (3-14); Neutrophils Absolute Auto 5900 /uL (1500-7000); Neutrophils Percent Auto 69.6 % (50-75); Platelet Count 319 X10^3/uL (150-400); Red Blood Cell Count 3.91 X10^6/uL (4.0-5.2); Red Cell Distribution Width 14.1 % (11.6-14.8); White Blood Cell Count 8.5 X10^3/uL (4.5-11.0)
[2022-06-08 20:06] LABS: Alanine Aminotransferase 16 IU/L (<35); Albumin 3.9 g/dL (3.5-5.0); Albumin Globulin Ratio 1.4 (1.0-2.8); Alkaline Phosphatase 70 U/L (38-126); Aspartate Aminotransferase 21 IU/L (14-36); BUN Creatinine Ratio 18.8 (6-22); Bilirubin Total 0.3 mg/dL (0.2-1.3); Blood Urea Nitrogen 15 mg/dL (7-17); Calcium 10.1 mg/dL (8.4-10.2); Carbon Dioxide 29 mmol/L (22-32); Chloride 95 mmol/L (98-107); Cholesterol 197 mg/dL (140-199); Estimated Glomerular Filt Rate > 60 mL/min (>60); Globulin 2.7 g/dL (1.7-4.1); Glucose 82 mg/dL (80-110); HDL Cholesterol 68 mg/dL (40-60); HEMOLYSIS < 15 (0-50); LDL Cholesterol Calculated 102 mg/dL (<100); Potassium 4.3 mmol/L (3.4-5.1); Sodium 132 mmol/L (137-145); Total Protein 6.6 g/dL (6.3-8.2); Triglycerides 133 mg/dL (35-150)
== END ==
PROVIDERS: PCP Family Medicine; Visit Provider Family Medicine
DX: D64.9 Anemia, unspecified (principal); E03.9 Hypothyroidism, unspecified; D21.3 Benign neoplasm of connective and other soft tissue of thorax; E78.2 Mixed hyperlipidemia; M54.59 Other low back pain
CPT/HCPCS: 80053; 80061; 85025

== ENCOUNTER → 2023-03-09 12:26 | Outpatient (CLI) | payer MEDICARE, SELFPAY ==
[2023-03-09 19:48] LABS: Alanine Aminotransferase 21 IU/L (<35); Albumin 3.5 g/dL (3.5-5.0); Albumin Globulin Ratio 1.3 (1.0-2.8); Alkaline Phosphatase 71 U/L (38-126); Aspartate Aminotransferase 23 IU/L (14-36); Bilirubin Total 0.3 mg/dL (0.2-1.3); Blood Urea Nitrogen 21 mg/dL (7-17); Calcium 9.8 mg/dL (8.4-10.2); Carbon Dioxide 27 mmol/L (22-32); Chloride 102 mmol/L (98-107); Cholesterol 177 mg/dL (140-199); Estimated Glomerular Filt Rate > 60 mL/min (>60); Globulin 2.7 g/dL (1.7-4.1); Glucose 79 mg/dL (80-110); HDL Cholesterol 65 mg/dL (40-60); HEMOLYSIS < 15 (0-50); LDL Cholesterol Calculated 93 mg/dL (<100); Potassium 4.3 mmol/L (3.4-5.1); Sodium 134 mmol/L (137-145); Total Protein 6.2 g/dL (6.3-8.2); Triglycerides 93 mg/dL (35-150)
[2023-03-10 02:07] LABS: Free T4, Direct Thyroxine 0.71 ng/dL (0.78-2.19)
== END ==
PROVIDERS: PCP Physician Assistant Medical; Visit Provider Physician Assistant Medical
DX: R55 Syncope and collapse (principal); E78.5 Hyperlipidemia, unspecified; E21.3 Hyperparathyroidism, unspecified; D64.9 Anemia, unspecified; Z79.891 Long term (current) use of opiate analgesic; E03.9 Hypothyroidism, unspecified
CPT/HCPCS: 80053; 80061; 82397; 84439; 84443

== ENCOUNTER → 2024-07-17 12:30 | Outpatient (CLI) | payer MEDICARE, SELFPAY ==
[2024-04-22 17:06] VITALS: BMI 23.1
[2024-07-17 21:52] LABS: Add Manual Diff / Slide Review NO; Basophils Absolute Auto 0 /uL (0-100); Basophils Percent Auto 0.4 % (0-2); Eosinophils Absolute Auto 100 /uL (0-450); Eosinophils Percent Auto 1.2 % (2-4); Hematocrit 42.5 % (36-46); Lymphocytes Absolute Auto 1400 /uL (1100-4500); Lymphocytes Percent Auto 14.8 % (25-40); Mean Corpuscular HGB Conc 32.9 % (30-36); Mean Corpuscular Hemoglobin 31.5 PG (26-34); Mean Corpuscular Volume 95.7 fL (80-100); Monocytes Absolute Auto 700 /uL (0-900); Monocytes Percent Auto 8.2 % (3-14); Neutrophils Absolute Auto 6900 /uL (1500-7000); Neutrophils Percent Auto 75.4 % (50-75); Platelet Count 314 X10^3/uL (150-400); Red Blood Cell Count 4.44 X10^6/uL (4.0-5.2); Red Cell Distribution Width 13.8 % (11.6-14.8); White Blood Cell Count 9.1 X10^3/uL (4.5-11.0)
[2024-07-17 22:05] LABS: Alanine Aminotransferase 53 IU/L (<35); Albumin 4.4 g/dL (3.5-5.0); Albumin Globulin Ratio 1.9 (1.0-2.8); Alkaline Phosphatase 86 U/L (38-126); Aspartate Aminotransferase 41 IU/L (14-36); BUN Creatinine Ratio 18.5 (6-22); Bilirubin Total 0.5 mg/dL (0.2-1.3); Blood Urea Nitrogen 23 mg/dL (7-17); Calcium 10.5 mg/dL (8.4-10.2); Carbon Dioxide 25 mmol/L (22-32); Chloride 105 mmol/L (98-107); Cholesterol 130 mg/dL (140-199); Estimated Glomerular Filt Rate 45 mL/min (>60); Globulin 2.3 g/dL (1.7-4.1); Glucose 89 mg/dL (80-110); HDL Cholesterol 84 mg/dL (40-60); HEMOLYSIS < 15 (0-50); LDL Cholesterol Calculated 35 mg/dL (<100); Potassium 4.4 mmol/L (3.4-5.1); Sodium 136 mmol/L (137-145); Total Protein 6.7 g/dL (6.3-8.2); Triglycerides 57 mg/dL (35-150)
[2024-07-18 21:45] LABS: Free T4, Direct Thyroxine 0.81 ng/dL (0.78-2.19)
[2024-07-19 06:36] LABS: Calcium 10.2 mg/dL (8.7-10.3); Parathyroid Hormone, Intact 39 pg/mL (15-65)
== END ==
PROVIDERS: PCP Physician Assistant Medical; Visit Provider Physician Assistant Medical
DX: R55 Syncope and collapse (principal); E21.3 Hyperparathyroidism, unspecified; E78.5 Hyperlipidemia, unspecified; E03.9 Hypothyroidism, unspecified; I11.0 Hypertensive heart disease with heart failure; I50.9 Heart failure, unspecified; R91.1 Solitary pulmonary nodule; M54.9 Dorsalgia, unspecified; G89.29 Other chronic pain; I25.810 Atherosclerosis of coronary artery bypass graft(s) without angina pectoris
CPT/HCPCS: 80053; 80061; 82310; 83735; 83970; 84439; 84443; 85025

== ENCOUNTER → 2024-08-15 12:56 | Outpatient (CLI) | payer MEDICARE, SELFPAY ==
[2024-04-22 17:06] VITALS: BMI 23.1
--- NOTE | 2024-08-15 12:58 | DI.ECHO.S_ITS ---
[facility] : : [id number] : : [place] : : [id number] : : Phone: [phone] Echocardiogram Report + + :Name: SERA DICKERSON Study Date: 08/15/2024 Height: 66 in : :[facility] ReadingLocation: Weight: 135 lb : : Gender: Female BSA: 1.7 m2 : :: 1945 Age: 78 yrs BP: 156/74 mmHg: :Reason For Study: [place] : :Ordering Physician: RUBIO, : :STEFANY Performed By: Pilo Jaffe : :Referring: STEFANY BERGERON : + + Interpretation Summary The ejection fraction is estimated to be 40-45%. Distal septal, mid to distal anteroseptal hypokinesis There is mild mitral regurgitation. There is moderate aortic regurgitation. The ascending aorta is mildly enlarged. Procedure: A two-dimensional transthoracic echocardiogram with color flow and Doppler was performed. The study quality was technically good. There is no prior echocardiogram noted for this patient. The patient was in normal sinus rhythm during the exam. Left Ventricle: The left ventricle is normal in size. There is mild asymmetric left ventricular hypertrophy. There is no ventricular septal defect visualized. The ejection fraction is estimated to be 40-45%. Distal septal, mid to distal anteroseptal hypokinesis. Diastolic parameters suggest a relaxation abnormality of the left ventricle, consistent with probable normal filling pressures. Right Ventricle: The right ventricle is normal in size and function. Atria: The left atrium is moderately dilated. Right atrial size is normal. There is no Doppler evidence for an interatrial shunt. Mitral Valve: There is mild mitral annular calcification. The mitral valve leaflets appear mildly thickened, but open well. There is mild mitral regurgitation. Aortic Valve: The aortic valve is trileaflet. The aortic valve is mildly calcified. The aortic valve opens well. There is moderate aortic regurgitation. Tricuspid Valve: The tricuspid valve leaflets are thin and pliable. There is trace tricuspid regurgitation. Pulmonic Valve: The pulmonic valve is not well seen, but is grossly normal. There is no pulmonic valvular regurgitation. Great Vessels: The aortic root is normal size. The ascending aorta is mildly enlarged. The pulmonary artery is normal size. The IVC is of normal diameter and collapses greater than 50% with a sniff. This suggests a low right atrial pressure of 3 mm Hg. Pericardium/ Pleura There is no pericardial effusion. There is no pleural effusion. MMode/2D Measurements & Calculations LVIDd: 4.7 cm LVOT diam: 1.9 cm LVIDs: 3.2 cm Ao root diam: 3.6 cm FS: 32.1 % asc Aorta Diam: 4.1 cm EPSS: 1.2 cm Ao Arch Diam (Prox Trans): 1.9 cm IVSd: 1.2 cm LVPWd: 0.94 cm LV stuart. diameter/BSA (cm/m^2): 2.8 LV sys. diameter/BSA (cm/m^2): 1.9 LA A2 area: 24.7 cm2 RA long axis: 4.6 cm LA A4 area: 17.2 cm2 RA area: 10.5 cm2 LA length (vol): 5.0 cm RA vol: 20.6 ml LA vol: 71.5 ml RA : 12.2 ml/m2 LA vol index: 42.3 ml/m2 IVC diam: 1.5 cm RVD1 (basal): 2.4 cm RVD2 (mid): 2.1 cm TAPSE: 2.2 cm Doppler Measurements & Calculations Ao V2 max: 152.5 cm/sec LVOT Max Alonso: 127.1 cm/sec Ao V2 mean: 106.1 cm/sec LV V1 max P.5 mmHg Ao max P.3 mmHg LV V1 VTI: 30.3 cm Ao mean P.0 mmHg JOYA(I,D): 2.3 cm2 Ao V2 VTI: 37.5 cm JOYA(V,D): 2.3 cm2 sev ratio: 0.81 JOYA indexed to BSA (cm^2/m^2): 1.3 AI P1/2t: 480.1 msec AI dec slope: 310.1 cm/sec2 MV E max alonso: 44.5 cm/sec TR max alonso: 235.7 cm/sec MV A max alonso: 67.1 cm/sec TR max P.8 mmHg MV E/A: 0.66 PA V2 max: 55.2 cm/sec Med Peak E' Alonso: 3.7 cm/sec PA V2 mean: 39.3 cm/sec E/E' med: 12.1 PA mean P.70 mmHg Lat Peak E' Alonso: 7.6 cm/sec PA pr(Accel): 10.5 mmHg E/E' lat: 5.8 E/e' average: 9.0 MV dec time: 0.16 sec SVLVOT): 85.0 ml Reading Physician:02:03 PM
--- NOTE | 2024-08-15 12:58 | DI.MG.S_ITS ---
MM screening mammo BI: 08/15/2024. BI-RADS: 1 CLINICAL: 78-year old female for bilateral screening mammogram. Tyrer-Cuzick lifetime risk of 1.8%. No personal or first-degree family history of breast cancer. PRIOR EXAMS: No prior examinations are available. MAMMOGRAPHY TECHNIQUE: 2D and 3D (tomosynthesis) digital mammographic views obtained, with additional images as needed for full coverage. Current study was also evaluated with a Computer Aided Detection (CAD) system. DENSITY C. The breasts are heterogeneously dense, which may obscure small masses. MAMMOGRAPHY FINDINGS Bilateral: No suspicious mass, asymmetry, microcalcification, or other abnormality seen. IMPRESSION: * No evidence of malignancy. RECOMMENDATIONS Bilateral * Annual screening mammography. OVERALL ASSESSMENT CATEGORY BI-RADS-1: Negative. The [employer] recommends annual screening mammography beginning at age 40 for women with average risk of breast cancer. ELECTRONICALLY SIGNED: Dalia Au M.D. on 08/15/2024 at 04:51:18 PM PT Interpreting Station ID: [id number]
--- NOTE | 2024-08-15 12:58 | DI.CT.S_ITS ---
PROCEDURE: CT CHEST WO CON INDICATIONS: nodular density on CT scan TECHNIQUE: Noncontrast 5 mm thick sections acquired from the pulmonary apices to the posterior costophrenic angles. 1 mm lung window, 5 mm thick coronal and sagittal and 7 mm axial MIP reformats were then acquired. For radiation dose reduction, the following was used: automated exposure control, adjustment of mA and/or kV according to patient size. COMPARISON: Outside Facility, CT, CT CHEST W CON, 09/15/2023, 12:26. FINDINGS: Image quality: Diagnostic. Lower Neck: No enlarged lymph nodes. Thyroid: No thyroid nodules which require sonographic follow up, per consensus guidelines. Axillae: No enlarged lymph nodes. Chest Wall: Unremarkable. Bones: Unremarkable. Lungs and Pleura: No pneumothorax or pleural effusions. This somewhat oval nodular density in the extreme right apex anteriorly seen on the previous study appears stable. Reference previous image 23 of series 3 and current image 64 of series 4. It previously measured 3.9 x 7.4 mm. Current measurements are 3.2 x 7.5 mm. Stable 3 mm noncalcified right lower lobe pulmonary nodule, current image 1752/4 and previous image 63/3. Stable 2 mm right upper lobe pulmonary nodule, current image 121 of series 4. Heart: Heart size is normal. No pericardial effusion. Multiple presumed coronary artery stents versus severe coronary artery calcifications. Thoracic Vessels: Interval increase in the size of the ascending aorta, now aneurysmal. At the lower aspect of the right main pulmonary artery, it has increased in size from 4.0 cm to 4.3 cm. Reference previous image 48 of series 2 and current image 46 of series 2. . Mediastinum and Hillary: No enlarged lymph nodes. Esophagus: No wall thickening. No hiatal hernia. Upper Abdomen: Visualized upper abdomen solid organs and bowel loops appear normal. IMPRESSION: 1. Stable 3.2 x 7.5 mm pulmonary nodule, right apex. 2. Other smaller pulmonary nodules are also stable. 3. 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 Comment: Recommend 12 month follow-up imaging. This can evaluate both the aorta and the stability of the pulmonary nodules. They have been stable over the last 11 months. 12 month follow-up would establish approximately 2 years of stability of the pulmonary nodules, consistent with benign pulmonary nodules. Dictated by: Favian Briones M.D. on 08/19/2024 at 12:27 Approved by: Favian Briones M.D. on 08/19/2024 at 12:39
== END ==
PROVIDERS: PCP Physician Assistant Medical; Referring Provider Physician Assistant Medical; Visit Provider Physician Assistant Medical
DX: Z12.31 Encounter for screening mammogram for malignant neoplasm of breast (principal); R01.1 Cardiac murmur, unspecified; I34.0 Nonrheumatic mitral (valve) insufficiency; I35.1 Nonrheumatic aortic (valve) insufficiency; I51.7 Cardiomegaly; R91.8 Other nonspecific abnormal finding of lung field; I71.40 Abdominal aortic aneurysm, without rupture, unspecified
CPT/HCPCS: 71250; 77063; 77067; 93306

== ENCOUNTER → 2024-11-27 11:24 | Outpatient (CLI) | payer MEDICARE, SELFPAY ==
[2024-04-22 17:06] VITALS: BMI 23.1
== END ==
PROVIDERS: PCP Physician Assistant Medical; Visit Provider Physician Assistant Medical
DX: N39.0 Urinary tract infection, site not specified (principal); R31.9 Hematuria, unspecified
CPT/HCPCS: 87086

== ENCOUNTER → 2025-03-26 09:45 | Outpatient (CLI) | payer MEDICARE, SELFPAY ==
[2024-04-22 17:06] VITALS: BMI 23.1
[2025-03-26 19:04] LABS: Alanine Aminotransferase 29 IU/L (<35); Albumin 3.9 g/dL (3.5-5.0); Albumin Globulin Ratio 1.6 (1.0-2.8); Alkaline Phosphatase 86 U/L (38-126); Blood Urea Nitrogen 19 mg/dL (7-17); Calcium 10.1 mg/dL (8.4-10.2); Carbon Dioxide 28 mmol/L (22-32); Chloride 102 mmol/L (98-107); Cholesterol 146 mg/dL (140-199); Estimated Glomerular Filt Rate > 60 mL/min (>60); Globulin 2.4 g/dL (1.7-4.1); Glucose 101 mg/dL (70-99); HDL Cholesterol 81 mg/dL (40-60); HEMOLYSIS 16 (0-50); Potassium 4.5 mmol/L (3.4-5.1); Sodium 135 mmol/L (137-145); Total Protein 6.3 g/dL (6.3-8.2); Triglycerides 133 mg/dL (35-150)
[2025-03-26 19:33] LABS: TSH w/ Reflex to FT4 0.58 uIU/mL (0.47-4.68)
== END ==
PROVIDERS: PCP Physician Assistant Medical; Visit Provider Physician Assistant Medical
DX: E03.9 Hypothyroidism, unspecified (principal); E78.2 Mixed hyperlipidemia; I10 Essential (primary) hypertension
CPT/HCPCS: 80053; 80061; 82043; 82570; 84443